=== PATIENT | male | born 1995 | race Caucasian/White ===

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

== ENCOUNTER 2019-01-12 08:05 | Emergency (ER) | payer OTHER ==
[~2019-01-12] VITALS: Ht 170.1 cm; Wt 61.2 kg
[2019-01-12] MEDS ORDERED: MEDROL DOSEPAK4 MG PO (08:58)
[2019-01-12] MEDS ORDERED: MUCINEX DM 30/61 TAB PO (08:58)
== END 2019-01-12 09:02 | disposition home or self-care (01) ==
LOC: ED 08:05
DX: J06.9 Acute upper respiratory infection, unspecified (principal)

== ENCOUNTER 2020-04-08 15:08 | Emergency (ER) | payer OTHER ==
[~2020-04-08] VITALS: Wt 61.2 kg
[~2020-04-08 15:08] MED LIST changes: +MEDROL DOSEPAK4 MG PO; +MUCINEX DM 30/61 TAB PO
[2020-04-08 16:04] LABS: BILIRUBIN Negative (Negative); BLOOD Negative (Negative); CLARITY Clear (Clear); COLOR Yellow (Yellow); GLUCOSE Negative (Negative); KETONE Negative (Negative); LEUKO ESTERASE 3+ (Negative); NITRITE Negative (Negative); SPECIFIC GRAVITY <= 1.005 (1.001-1.030)
[2020-04-08 16:13] LABS: EPITHELIAL CELLS 0-2; RBC 0-2 rbc/hpf (0-2); WBC TNTC wbc/hpf (0-5)
== END 2020-04-08 16:46 | disposition home or self-care (01) ==
LOC: ED 15:08
PROVIDERS: Emergency Medicine
DX: Z20.2 Contact with and (suspected) exposure to infections with a predominantly sexual mode of transmission (principal); Z79.899 Other long term (current) drug therapy

== ENCOUNTER 2021-03-04 07:42 | Emergency (ER) | payer OTHER ==
[~2021-03-04] VITALS: Ht 170.1 cm; Wt 59.0 kg
[2021-03-04] MEDS ORDERED: NAPROSYN500 MG PO (08:02)
[2021-03-04 08:10] LABS: BASO # 0.1 10*3/uL (0.0-0.1); BASO % 0.6 % (0.0-1.0); EOS # 0.2 10*3/uL (0.0-0.4); EOS % 1.7 % (1.0-4.0); HEMATOCRIT 40.5 % (42.0-52.0); LYMPH # 2.4 10*3/uL (1.3-4.4); LYMPH % 21.6 % (27.0-41.0); MEAN CELL VOLUME 81.5 fl (80.0-94.0); MEAN CORPUSCULAR HGB 26.4 pg (27.0-31.0); MEAN CORPUSCULAR HGB CONC 32.3 g/dl (33.0-37.0); MEAN PLATELET VOLUME 9.9 fl (9.6-12.3); MONO # 1.3 10*3/uL (0.1-1.0); MONO % 11.9 % (3.0-9.0); NEUT % 63.8 % (47.0-73.0); PLATELET COUNT AUTOMATED 206 10*3/uL (130-400); RED BLOOD COUNT 4.97 10*6/uL (4.50-5.90); RED CELL DISTRI WIDTH 13.8 % (0-14.5); WHITE BLOOD COUNT 10.9 10*3/uL (4.8-10.8)
[2021-03-04 08:26] LABS: ALBUMIN 3.7 gm/dl (3.1-4.5); ALKALINE PHOSPHATASE 113 U/L (45-117); BUN 9 mg/dl (7-24); CHLORIDE 111 mmol/L (98-107); CREATININE 0.89 mg/dL (0.70-1.30); POTASSIUM 3.9 mmol/L (3.5-5.1); SGOT/AST 12 IU/L (3-35); SGPT/ALT 20 U/L (12-78); SODIUM 140 mmol/L (136-145)
== END 2021-03-04 08:55 | disposition home or self-care (01) ==
LOC: ED 07:42
PROVIDERS: Emergency Medicine
DX: R59.0 Localized enlarged lymph nodes (principal)

== ENCOUNTER 2022-01-19 20:24 | Emergency (ER) | payer OTHER ==
[~2022-01-19] VITALS: Ht 170.1 cm; Wt 56.7 kg
[~2022-01-19 20:24] MED LIST changes: +NAPROSYN500 MG PO
[2022-01-19 21:49] LABS: BASO # 0.1 10*3/uL (0.0-0.1); BASO % 0.6 % (0.0-1.0); EOS # 0.2 10*3/uL (0.0-0.4); EOS % 1.7 % (1.0-4.0); HEMATOCRIT 40.4 % (42.0-52.0); LYMPH # 4.1 10*3/uL (1.3-4.4); LYMPH % 39.6 % (27.0-41.0); MEAN CELL VOLUME 81.9 fl (80.0-94.0); MEAN CORPUSCULAR HGB CONC 32.9 g/dl (33.0-37.0); MEAN PLATELET VOLUME 9.9 fl (9.6-12.3); MONO # 0.9 10*3/uL (0.1-1.0); MONO % 8.1 % (3.0-9.0); NEUT # 5.2 10*3/uL (2.3-7.9); NEUT % 49.7 % (47.0-73.0); PLATELET COUNT AUTOMATED 207 10*3/uL (130-400); RED BLOOD COUNT 4.93 10*6/uL (4.50-5.90); RED CELL DISTRI WIDTH 13.3 % (0-14.5); WHITE BLOOD COUNT 10.4 10*3/uL (4.8-10.8)
[2022-01-19 22:23] LABS: ALKALINE PHOSPHATASE 79 U/L (45-117); BUN 9 mg/dl (7-24); CHLORIDE 110 mmol/L (98-107); CREATININE 0.97 mg/dL (0.70-1.30); LIPASE 69 U/L (73-393); POTASSIUM 3.8 mmol/L (3.5-5.1); SGOT/AST 17 IU/L (3-35); SGPT/ALT 19 U/L (12-78); SODIUM 140 mmol/L (136-145); TOTAL PROTEIN 6.9 gm/dL (6.4-8.2)
[2022-01-19] MEDS ORDERED: OMEPRAZOLE40 MG PO (23:05)
== END 2022-01-19 23:15 | disposition home or self-care (01) ==
LOC: ED 20:24
PROVIDERS: Internal Medicine
DX: R10.13 Epigastric pain (principal); R10.11 Right upper quadrant pain; R11.0 Nausea; Z79.899 Other long term (current) drug therapy

== ENCOUNTER 2022-05-28 20:17 | Emergency (ER) | payer OTHER ==
[~2022-05-28] VITALS: Ht 167.6 cm; Wt 59.0 kg
[~2022-05-28 20:17] MED LIST changes: +OMEPRAZOLE40 MG PO
[2022-05-28] MEDS ORDERED: VIBRAMYCIN100 MG PO (22:06)
== END 2022-05-28 22:05 | disposition home or self-care (01) ==
LOC: ED 20:17
DX: L72.3 Sebaceous cyst (principal); Z87.891 Personal history of nicotine dependence

== ENCOUNTER 2022-09-21 08:04 | Emergency (ER) | payer OTHER ==
[~2022-09-21] VITALS: Ht 167.6 cm; Wt 56.7 kg
[~2022-09-21 08:04] MED LIST changes: +VIBRAMYCIN100 MG PO
[2022-09-21] MEDS ORDERED: PHENERGAN25 M3 PO (08:19)
[2022-09-21] MEDS ORDERED: ZITHROMAX250 MG PO (08:19)
== END 2022-09-21 08:11 | disposition home or self-care (01) ==
LOC: ED 08:04
DX: H66.92 Otitis media, unspecified, left ear (principal); J02.9 Acute pharyngitis, unspecified

== ENCOUNTER 2023-02-04 15:23 | Emergency (ER) | payer OTHER ==
[~2023-02-04] VITALS: Ht 167.6 cm; Wt 59.0 kg
[~2023-02-04 15:23] MED LIST changes: +PHENERGAN25 M3 PO; +ZITHROMAX250 MG PO
== END 2023-02-04 16:54 | disposition left against medical advice (07) ==
LOC: ED 15:23
DX: R05.9 Cough, unspecified (principal); J02.9 Acute pharyngitis, unspecified; H92.03 Otalgia, bilateral; Z53.21 Procedure and treatment not carried out due to patient leaving prior to being seen by health care provider

== ENCOUNTER 2023-02-28 18:28 | Emergency (ER) | payer OTHER ==
[~2023-02-28] VITALS: Wt 59.0 kg
== END 2023-02-28 20:58 | disposition home or self-care (01) ==
LOC: ED 18:28
DX: J06.9 Acute upper respiratory infection, unspecified (principal); F90.9 Attention-deficit hyperactivity disorder, unspecified type; Z20.822 Contact with and (suspected) exposure to COVID-19

== ENCOUNTER 2024-01-15 18:19 | Emergency (ER) | payer OTHER ==
[~2024-01-15] VITALS: Ht 167.6 cm; Wt 60.8 kg
[2024-01-15] MEDS ORDERED: Ondansetron Hydrochloride 4 MG TAB SL ONE (20:55)
[2024-01-15] MEDS ORDERED: Acetaminophen/Hydrocodone 5 MG/325 MG TABLET PO ONE (20:55)
== END 2024-01-15 20:59 | disposition home or self-care (01) ==
LOC: ED 18:19
DX: S02.2XXA Fracture of nasal bones, initial encounter for closed fracture (principal); S00.31XA Abrasion of nose, initial encounter; F90.9 Attention-deficit hyperactivity disorder, unspecified type; W22.8XXA Striking against or struck by other objects, initial encounter; Y93.02 Activity, running; Y92.009 Unspecified place in unspecified non-institutional (private) residence as the place of occurrence of the external cause; Y99.8 Other external cause status

== ENCOUNTER 2024-03-13 13:11 | Emergency (ER) | payer OTHER ==
[~2024-03-13] VITALS: Ht 167.6 cm; Wt 59.9 kg
[2024-03-13] MEDS ORDERED: Tdap Vaccine 0.5 ML SYR (Adult Vaccine) IM ONE (14:25)
[2024-03-13] MEDS ORDERED: CEPHALEXIN 500 MG CAP PO ONE (14:30)
[2024-03-13] MEDS ORDERED: Bacitracin Zinc 14 GM TUBE T ONE (14:30)
[2024-03-13] MEDS ORDERED: CEPHALEXIN500 M1 PO (14:51)
== END 2024-03-13 15:06 | disposition home or self-care (01) ==
LOC: ED 13:11
DX: S91.332A Puncture wound without foreign body, left foot, initial encounter (principal); F90.9 Attention-deficit hyperactivity disorder, unspecified type; W22.8XXA Striking against or struck by other objects, initial encounter; Y93.02 Activity, running; Y92.89 Other specified places as the place of occurrence of the external cause; Y99.8 Other external cause status

== ENCOUNTER 2024-09-09 04:34 | Emergency (ER) | payer OTHER ==
[~2024-09-09] VITALS: Ht 167.6 cm; Wt 62.6 kg
[~2024-09-09 04:34] MED LIST changes: +CEPHALEXIN500 M1 PO
[2024-09-09] MEDS ORDERED: Doxycycline Hyclate 100 MG CAPSULE PO ONE (04:50)
[2024-09-09] MEDS ORDERED: VIBRAMYCIN100 MG PO (04:53)
== END 2024-09-09 05:01 | disposition home or self-care (01) ==
LOC: ED 04:34
DX: S70.362A Insect bite (nonvenomous), left thigh, initial encounter (principal); Z79.899 Other long term (current) drug therapy; W57.XXXA Bitten or stung by nonvenomous insect and other nonvenomous arthropods, initial encounter; Y93.89 Activity, other specified; Y92.89 Other specified places as the place of occurrence of the external cause; Y99.8 Other external cause status

== ENCOUNTER 2024-10-21 08:47 | Emergency (ER) | payer OTHER ==
[~2024-10-21] VITALS: Ht 167.6 cm; Wt 57.6 kg
[2024-10-21] MEDS ORDERED: Bactroban Oint22 GM T (09:05)
[2024-10-21] MEDS ORDERED: CLINDAMYCIN HC300 MG PO (09:05)
== END 2024-10-21 09:08 | disposition home or self-care (01) ==
LOC: ED 08:47
DX: L01.00 Impetigo, unspecified (principal); L70.9 Acne, unspecified